=== PATIENT | male | born 1980 | race Caucasian/White ===

== ENCOUNTER 2024-07-04 04:23 | Emergency (ER) | payer BC, OTHER ==
[~2024-07-04] VITALS: Ht 165.1 cm; Wt 63.5 kg
--- NOTE | 2024-07-04 04:42 | NUR ---
ERMD at bedside. MSE in progress.
[2024-07-04] MEDS ORDERED: HYDR-3980 PO (04:54)
[2024-07-04] MEDS ORDERED: ONDA4TAB11 PO (04:54)
[2024-07-04] MEDS ORDERED: ONDANSETRON ODT 4 MG TAB.RAPDIS ONE (04:56)
[2024-07-04] MEDS ORDERED: AMOXICILLIN-CLAVUL 875-125MG TABLET ONE (04:56)
[2024-07-04] MEDS ORDERED: AMOX-430 PO (04:56)
[2024-07-04] MEDS: AMOXICILLIN-CLAVUL 875-125MG TABLET PO ONE (05:20)
[2024-07-04] MEDS: ONDANSETRON ODT 4 MG TAB.RAPDIS SL ONE (05:20)
--- NOTE | 2024-07-04 05:22 | NUR ---
Administered medication as prescribed, Assisted patient into comfortable position. safety and comfort measures in place.
--- NOTE | 2024-07-04 05:24 | NUR ---
Patient discharged to home in stable condition. Written and verbal after care instructions given. Patient verbalizes understanding of instructions. Stressed follow up or return to ER for worsening s/s. Patient left ER with Steady gait.
[2024-07-04 05:46] VITALS: BP 122/86; TEMP 98; O2SAT 99
== END 2024-07-04 05:47 | disposition home or self-care (01) ==
LOC: ER 04:31
DX: H66.91 Otitis media, unspecified, right ear (principal); Z98.890 Other specified postprocedural states; Z90.49 Acquired absence of other specified parts of digestive tract; Z79.891 Long term (current) use of opiate analgesic; Z79.899 Other long term (current) drug therapy
CPT/HCPCS: A4606; A4663; Q0162